=== PATIENT | female | born 2005 | race Caucasian/White ===

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

== ENCOUNTER 2023-08-09 15:38 | Outpatient (CLI) | payer OTHER, SELFPAY | END 2023-08-09 15:39 | disposition home or self-care (01) | PROVIDERS: PCP Family Medicine; Visit Provider Family Medicine | DX: Z00.00 Encounter for general adult medical examination without abnormal findings (principal); R11.0 Nausea; F31.81 Bipolar II disorder; F41.1 Generalized anxiety disorder | CPT/HCPCS: 80053; 83690; 84443 ==